=== PATIENT | female | born 1955 ===

== ENCOUNTER 2018-02-24 12:50 | Emergency (ER) | payer MEDICARE ==
[2018-02-24 13:30] VITALS: RESP 18; O2SAT 97
[2018-02-24 13:41] VITALS: BMI 25.4
[2018-02-24 13:44] VITALS: TEMP 98
--- NOTE | 2018-02-24 13:47 | ED PDOC ---
Arrival/HPI - General Chief Complaint: GI Problem Time Seen by Provider: 02/24/18 13:44 Historian: Patient - History of Present Illness Narrative History of Present Illness (Text): 02/24/18 13:44 46 year old female, whose past medical history includes hyperthyroidism, who presents to the emergency department complaining of constant vomiting and diarrhea for 12 hours. Patient notes associated abdominal pain. Patient states she ate at [employer] last night. Patient denies any fever, chills, chest pain, shortness of breath, back pain, neck pain, headache, dizziness, or any other complaints. Time/Duration: Other (12 hours) Symptom Onset: Sudden Symptom Course: Unchanged Activities at Onset: Light Context: Home Past Medical History - Provider Review Nursing Documentation Reviewed: Yes - Endocrine/Metabolic Hx Hypothyroidism: Yes - Psychiatric Hx Substance Use: No - Surgical History Hx Section: Yes - Anesthesia Hx Anesthesia: Yes Hx Anesthesia Reactions: No Hx Malignant Hyperthermia: No Family/Social History - Physician Review Nursing Documentation Reviewed: Yes Family/Social History: Unknown Family HX Smoking Status: Never Smoked Hx Alcohol Use: Yes Frequency of alcohol use: Socially Hx Substance Use: No Allergies/Home Meds Allergies/Adverse Reactions: Allergies codeine Allergy (Verified 02/24/18 13:42) VOMITING Review of Systems - Physician Review All systems were reviewed & negative as marked: Yes - Review of Systems Constitutional: Normal Eyes: Normal ENT: Normal Respiratory: Normal. absent: SOB, Cough Cardiovascular: Normal. absent: Chest Pain Gastrointestinal: Abdominal Pain, Diarrhea, Vomiting Genitourinary Female: Normal. absent: Dysuria, Frequency Musculoskeletal: Normal. absent: Back Pain, Neck Pain Skin: Normal. absent: Rash Neurological: Normal. absent: Headache, Dizziness Endocrine: Normal Hemo/Lymphatic: Normal Psychiatric: Normal Physical Exam - Physical Exam Narrative Physical Exam (Text): 02/24/18 13:48 Gen: VS reviewed, alert, well developed, well nourished, nontoxic, mild distress. ENT: normal pharynx. dry mucous membranes Eye: EOMI, PERRL. Neck: no JVD, supple, no adenopathy. CV: regular rate, regular rhythm, no rubs, no murmur, no gallops, S1, S2, pulses equal and strong. Pulm: no distress, clear to auscultation, no wheeze, no rhonchi, breath sounds equal, no rales. Abd: soft, nontender, no guarding, no rebound, no rigidity, normal bowel sounds. Ext: no edema. Skin: good color, no rash, no cyanosis. Psych: responds appropriately to questions, normal affect. Neuro: oriented x 3, CN2-12 intact grossly, motor intact, sensation intact. Vital Signs Reviewed: Yes Vital Signs Temp Pulse Resp BP Pulse Ox 02/24/18 15:40 86 18 121/65 97 02/24/18 13:33 98 F 93 H 18 125/84 97 02/24/18 13:29 98.0 F 93 H 18 125/64 97 Temperature: Afebrile Blood Pressure: Normal Pulse: Regular Respiratory Rate: Normal Appearance: Positive for: Well-Appearing, Non-Toxic, Comfortable Pain Distress: None Mental Status: Positive for: Alert and Oriented X 3 Medical Decision Making ED Course and Treatment: 02/24/18 13:49 Impression: 46 year old female presents to the emergency department complaining of vomiting and diarrhea for 12 hours. Plan: -- Labs -- Reassess and disposition Progress Notes: 02/24/18 15:31 Reevaluation: On reevaluation the patient feels better, is in no acute distress, and is tolerating PO. I have discussed the results and plan with the patient, who expresses understanding. Patient given the opportunity to ask question, all questions were answered and there is agreement with the plan to discharge the patient home with prescription for Zofran. Patient is stable for discharge. Patient was instructed to follow up with physician/clinic in 1-2 days or return if symptoms persist/worsen or new concerning symptoms arise. 02/24/18 15:49 patient seen for benign case of acute vomit and diarrhea, no fever, no bloody stools or emesis, patient nontoxic appearing and stable for dc. - Lab Interpretations Lab Results: 02/24/18 13:30 Lab Results 02/24/18 13:30: Sodium 140, Potassium 4.2, Chloride 102, Carbon Dioxide 26, Anion Gap 16, BUN 19, Creatinine 0.6 L, Est GFR ( Amer) > 60, Est GFR ( Non-Af Amer) > 60, Random Glucose 115 H, Calcium 8.9, Total Bilirubin 1.0, AST 38 H, ALT 43, Alkaline Phosphatase 97, Total Protein 8.3, Albumin 4.4, Globulin 3.9, Albumin/Globulin Ratio 1.1 I have reviewed the lab results: Yes - Medication Orders Current Medication Orders: Discontinued Medications Sodium Chloride (Sodium Chloride 0.9%) 1,000 mls @ 999 mls/hr IV .Q1H1M STA Stop: 02/24/18 14:45 Last Admin: 02/24/18 13:53 Dose: 999 mls/hr eMAR Start Stop Document 02/24/18 13:53 EQ (Rec: 02/24/18 13:53 EQ [email or web address] Intravenous Solution Start Date 02/24/18 Start Time 13:53 Ondansetron HCl (Zofran Inj) 4 mg IVP STAT STA Stop: 02/24/18 14:42 Last Admin: 02/24/18 14:56 Dose: 4 mg IVP Administration Document 02/24/18 14:56 EQ (Rec: 02/24/18 14:56 EQ [email or web address] Charges for Administration # of IVP Administrations 1 - Scribe Statement The provider has reviewed the documentation as recorded by the Scribyordan Howe All medical record entries made by the Scribe were at my direction and personally dictated by me. I have reviewed the chart and agree that the record accurately reflects my personal performance of the history, physical exam, medical decision making, and the department course for this patient. I have also personally directed, reviewed, and agree with the discharge instructions and disposition. Disposition/Present on Arrival - Present on Arrival Any Indicators Present on Arrival: No History of DVT/PE: No History of Uncontrolled Diabetes: No Urinary Catheter: No History of Decub. Ulcer: No History Surgical Site Infection Following: None - Disposition Have Diagnosis and Disposition been Completed?: Yes Diagnosis: Gastroenteritis Disposition: HOME/ ROUTINE Disposition Time: 15:50 Patient Plan: Discharge Condition: IMPROVED Discharge Instructions (ExitCare): Gastroenteritis (ED) Print Language: MALAWIAN Additional Instructions: Stay well hydrated (water). Return for any new or worsening symptoms. SAPNA UNDERWOOD, thank you for letting us take care of you today. Your provider was Dr. Shiraz Barroso and you were treated for VOMITING/DIARREAH. The emergency medical care you received today was directed at your acute symptoms. If you were prescribed any medication, please fill it and take as directed. It may take several days for your symptoms to resolve. Return to the Emergency Department if your symptoms worsen, do not improve, or if you have any other problems. Please contact your doctor or call one of the physicians/clinics you have been referred to that are listed on the Patient Visit Information form that is included in your discharge packet. Bring any paperwork you were given at discharge with you along with any medications you are taking to your follow up visit. Our treatment cannot replace ongoing medical care by a primary care provider outside of the emergency department. Thank you for allowing the [facility] team to be part of your care today. If you had an X-Ray or CT scan: A Radiologist will review the ED reading if any change in treatment is needed we will contact you. If you had a blood, urine, or wound culture: It will take several days for the results, if any change in treatment is needed we will contact you. If you had an STI test: It will take 48 hours for the results. Please call after 1 week if you have not heard back. Prescriptions: Ondansetron [Zofran] 4 mg PO Q8H #12 tab Referrals: Kieran Castaneda MD [Primary Care Provider] - Follow up with primary Forms: [employer] (Tongan)
[2018-02-24] MEDS: Sodium Chloride 0.9% 1,000 ML IV STA (13:53)
[2018-02-24 14:32] LABS: BLOOD UREA NITROGEN 19 mg/dL (7-21); CALCIUM 8.9 mg/dL (8.4-10.5); GFR AFRICAN-AMERICAN > 60; GFR NON-AFRICAN AMERICAN > 60
[2018-02-24 14:33] LABS: ALB/GLOB RATIO 1.1 (1.1-1.8); ALBUMIN 4.4 g/dL (3.0-4.8); ALT/SGPT 43 U/L (7-56); AST/SGOT 38 U/L (14-36)
[2018-02-24 15:40] VITALS: BP 121/65; PULSE 86
== END 2018-02-24 16:14 | disposition home or self-care (01) ==
LOC: EDBD 12:50 → ED 12:50
DX: K52.9 Noninfective gastroenteritis and colitis, unspecified (principal)